=== PATIENT | male | born 1925 | race Caucasian/White ===

== ENCOUNTER 2017-01-27 15:11 | Inpatient (IN) | payer OTHER, BC ==
[~2017-01-27] VITALS: Ht 172.7 cm; Wt 81.6 kg
--- NOTE | ~2017-01-27 | HC ---
[facility] [place] [address] CONSULTATION Name: LYNNE ROSARIO Room #: 302-P [facility] ..#: [id number] Admission: 01/27/17 Attend Phys: Cierra Santacruz Discharge: 01/29/17 Date of : [birth year] Report #: [id number] THIS REPORT FOR: //name// CC: Benjamín Matos DATE OF SERVICE: 01/28/2017 ATTENDING PHYSICIAN: Cierra Santacruz MD REASON FOR CONSULTATION: Abdominal pain. HISTORY OF PRESENT ILLNESS: This is an 89-year-old male patient who is presently confused. He was seen in [facility] with acute onset epigastric abdominal pain after eating breakfast. The patient thought that he was having a heart attack. CT of the chest with PE protocol as well as the abdomen and pelvis was obtained showing no evidence for pulmonary embolism or aortic dissection, however, cholelithiasis was seen. There were no acute findings. This was followed by an abdominal ultrasound, which showed cholelithiasis with gallbladder wall thickening and a positive sonographic Duke's sign with concern for cholecystitis. The patient had a negative troponin and normal EKG. I have been asked to see the patient for further evaluation and treatment. PAST MEDICAL HISTORY: Significant for hypertension, hyperlipidemia, gastroesophageal reflux disease, history of left upper extremity melanoma, and lymphedema. PAST SURGICAL HISTORY: Melanoma excision. MEDICATIONS: At home include Zetia and atorvastatin. ALLERGIES: No known drug allergies. FAMILY HISTORY: Reviewed and noncontributory to this hospitalization. SOCIAL HISTORY: The patient denies use of tobacco, alcohol or illicit drugs. He quit smoking more than 40 years ago. He is . REVIEW OF SYSTEMS: As per history of present illness. In addition, GENERAL: The patient denies fever or chills. Denies unintentional weight loss. HEENT: Denies changes in taste, vision, hearing, or smell. RESPIRATORY: Denies shortness of breath, COPD or asthma. CARDIOVASCULAR: Denies chest pain or palpitations currently. GASTROINTESTINAL: As per history of present illness. Denies bright red blood [facility] [address] [place] [address] CONSULTATION Name: LYNNE ROSARIO Room #: 302-P [facility] IN M.R.#: [id number] Admission: 01/27/17 Attend Phys: Cierra Santacruz Discharge: 01/29/17 Date of : [birth year] Report #: [id number] per rectum. GENITOURINARY: Denies dysuria, urgency, increased urinary frequency or hematuria. MUSCULOSKELETAL: Denies myalgia, arthralgia, arthritis. Has intermittent left upper extremity edema/lymphedema. NEUROLOGIC: Denies headaches, numbness or tingling. PSYCHIATRIC: Denies depression, anxiety or suicidal ideations but admittedly has a "bad memory." SKIN AND INTEGUMENTARY: Denies new skin lesions, rashes, or moles. ENDOCRINE: Denies polydipsia, polyuria, heat or cold intolerance. All other review of systems is negative. PHYSICAL EXAMINATION: VITAL SIGNS: Temperature 97.7, blood pressure 98/59, pulse 60, respirations 18, height 5 feet 8 inches, weight 180 pounds. GENERAL: This is an 89-year-old male patient in no acute distress. HEENT: Atraumatic, normocephalic with moist mucosal membranes. Oropharynx is clear. He has no scleral icterus. NECK: Supple, no appreciable lymphadenopathy. Trachea is midline. CHEST: Clear bilaterally. No crackles or wheezes. CARDIOVASCULAR: Regular rate and rhythm, S1, S2. ABDOMEN: Soft, but tender to palpation, greatest in the right upper quadrant where he is subjectively tender as well as objectively. He has no rebound or guarding. Negative Duke's sign. No appreciable hernias, no palpable masses. GENITOURINARY: Normal external male genitalia. EXTREMITIES: No clubbing, cyanosis or edema. NEUROLOGIC: Cranial nerves 2-12 grossly intact. PSYCHIATRIC: Normal mood and affect. SKIN AND INTEGUMENTARY: No acute inflammatory changes, rashes or lesions are present. LABORATORY DATA: CBC shows a white blood cell count 6.3, hemoglobin 12.3, hematocrit 36.7 and platelets 149. His electrolytes showed sodium 142, potassium 4.1, chloride 101, CO2 of 27, BUN 16, creatinine 1.0 and glucose 121. Radiographic findings are as noted above. IMPRESSION AND PLAN: This is an 89-year-old male patient with the above listed comorbidities who is found to have gallstones, gallbladder wall thickening, and tenderness in the right upper quadrant. There is concern for acute cholecystitis. The pathophysiology and natural history of cholecystitis were discussed in detail with the patient as well as treatment alternatives, surgical options, risks, benefits and expectations. The patient would benefit from laparoscopic cholecystectomy with cholangiogram. He expressed understanding the [facility] [address] [address] CONSULTATION Name: LYNNE ROSARIO Room #: 302-P [facility] IN M.R.#: [id number] Admission: 01/27/17 Attend Phys: Cierra Santacruz Discharge: 01/29/17 Date of : 05/26/27 Report #: [id number] risks and benefits and wishes to proceed. He will be scheduled to undergo the operation at the next earliest availability. <ELECTRONICALLY SIGNED> By: Kristian Matos MD, FACS 02/01/17 1519 [id number] Kristian Matos MD, FACS /nt
--- NOTE | ~2017-01-27 | O ---
[facility] [place] [address] OPERATIVE REPORT Name: LYNNE ROSARIO Room #: 302-P [facility] IN M.R.#: [id number] Admission: 01/27/17 Attend Phys: Cierra Santacruz Discharge: 01/29/17 Date of : 05/26/[birth year] Report #: [id number] THIS REPORT FOR: //name// CC: Benjamín Matos PREOPERATIVE DIAGNOSIS: Acute cholecystitis. POSTOPERATIVE DIAGNOSES: 1. Acute cholecystitis. 2. Incarcerated umbilical hernia. PROCEDURE: 1. Laparoscopic cholecystectomy with intraoperative cholangiogram. 2. Laparoscopic repair of incarcerated umbilical hernia. SURGEON: Kristian Matos MD FIELD GAUGER: CAROLYN Rosenbaum ANESTHESIA: General endotracheal anesthesia and local anesthetic. ESTIMATED BLOOD LOSS: 5 mL. SPECIMEN: Gallbladder. COMPLICATIONS: None appreciated. INDICATIONS FOR PROCEDURE: This is an 89-year-old male patient who was seen in the [facility] emergency room with acute onset of epigastric abdominal pain after eating. The patient felt that he was having a heart attack. CT of the chest with PE protocol showed no evidence for pulmonary embolism or aortic dissection, however, cholelithiasis was seen. The patient underwent an abdominal ultrasound showing cholelithiasis with gallbladder wall thickening and a positive sonographic Duke's sign with concern for acute cholecystitis. The patient's cardiac workup was negative. The patient presents now for laparoscopic cholecystectomy with intraoperative cholangiogram. OPERATIVE FINDINGS: Upon entrance into the abdominal cavity, the gallbladder appeared to be acutely inflamed. The liver, stomach, small-bowel and colon in the surrounding area appeared otherwise normal. The critical view consisting of cystic artery, cystic duct, and lower edge of the gallbladder forming a window through which the liver was seen prior to clipping the cystic duct for cholangiogram. The cholangiogram showed no evidence for choledocholithiasis. Contrast flowed into the duodenal sweep. Three clips remained on the cystic [facility] [address] [place] [address] OPERATIVE REPORT Name: LYNNE ROSARIO Carmita Room #: 302-P [facility] IN [facility].#: [id number] Admission: 01/27/17 Attend Phys: Cierra Santacruz Discharge: 01/29/17 Date of : 05/26/27 Report #: [id number] duct stump after its division. After removal of the gallbladder from the patient's abdominal cavity, gallstones were found within the gallbladder. The liver bed was hemostatic and the 3 Hemoclips on the cystic duct were secured. An incarcerated umbilical hernia was identified during extraction of the gallbladder from the patient's body. This required a separate hubebm-pp-[id number] 0 PDS suture for repair. No other significant intraabdominal pathology was identified. At the conclusion of the operation, the sponge, needle, and instrument counts were correct. There was no evidence for iatrogenic injury. DESCRIPTION OF PROCEDURE IN DETAIL: After the benefits and risks of the procedure were explained to the patient and his durable power of erisa attorney, which include, but are not limited to risks of bleeding, infection, postoperative pain, and postoperative expectations, informed consent was obtained. The patient was identified in the preoperative holding area. He was given IV antibiotics as documented in the chart in line with the SCIP protocol. The patient was then taken to the operating room and he was placed in the supine position. SCDs were placed on the patient's bilateral lower extremities and pneumatic compression was initiated. The patient was then given IV sedation and he was intubated without incident. A time-out was performed to identify the correct patient and procedure after prepping and draping the patient in the standard sterile fashion. Local anesthetic was infiltrated into the skin and subcutaneous tissue periumbilically where a curvilinear incision was made with a #15 bladed scalpel. Dissection was carried down to the fascia. An 11-mm Visiport was placed intraperitoneally with a 0-degree angled laparoscope. Pneumoperitoneum was achieved with insufflation of carbon dioxide to 15 mmHg. A 30-degree angled laparoscope was inserted. The patient was placed in the reverse Trendelenburg position, rotated to his left. A subxiphoid 5-mm and right subcostal 5-mm ports times 2 were placed under direct visualization after local anesthetic was infiltrated into the skin and subcutaneous tissue and appropriately sized incisions were made. Operative findings are as noted above. The dome of the gallbladder was retracted in a cephalad direction. The omental adhesions to the gallbladder were carefully taken down with the ultrasonic dissector. The gallbladder peritoneum was then scored medially and laterally and dissection was carried out around the cystic artery and cystic duct to identify both structures as the only two structures entering the gallbladder. The critical view of safety was seen as described above. A Hemoclip was placed on the cystic duct at its junction with the neck of the gallbladder. A ductotomy was then created sharply. A cholangiocatheter was inserted and cholangiogram performed with findings as noted above. The cholangiocatheter was then removed and the cystic duct was triply clipped distal to the ductotomy. The duct was then divided with the ultrasonic at the ductotomy site with a good seal on the cystic duct. The cystic artery was divided with the ultrasonic dissector as well with good hemostasis. The gallbladder was then dissected out [facility] [address] [place] [address] OPERATIVE REPORT Name: LYNNE ROSARIO Room #: 302-P [facility]#: [id number] Admission: 01/27/17 Attend Phys: Cierra Holman Noam Discharge: 01/29/17 Date of : 05/26/27 Report #: [id number] of the liver bed without entrance in to the gallbladder or liver bed. The gallbladder was placed in an Endopouch and removed through the periumbilical port site. While doing so, an incarcerated umbilical hernia was seen. The incarcerated tissue was dissected out of the defect. After fully isolating the defect, a jyifxy-bd-kvjec 0 PDS suture was placed to close the defect under direct visualization with the Maximus-Anjelica laparoscopic fascial closure device. The suture was tied under direct visualization. The port site fascial opening was approximated with an 0 PDS suture using the Maximus-Anjelica fascial closure device as well. The suture was tagged and the port was replaced. The abdominal cavity was then reentered. The liver bed was made hemostatic with electrocautery. The Hemoclips were secured. No other significant intraabdominal pathology was identified. At the conclusion of the operation, the sponge, needle, and instrument counts were correct. There was no evidence for iatrogenic injury. The ports were removed and the abdominal cavity was desufflated. The fascial suture had been tied under direct visualization to ensure no incorporation of intra-abdominal content with the closure. The incisions were closed with interrupted subcuticular 4-0 Monocryl sutures and Dermabond. The patient tolerated the procedure well. He was awakened, extubated, and taken to recovery room in stable condition with no apparent intraoperative complications. By: [id number] Kristian Matos MD, FACS /nt
--- NOTE | ~2017-01-27 | S ---
[facility] [address] [place] [address] SURGICAL PATH RPT PROCEDURE Name: LYNNE ROSARIO Room #: 302-P [facility] IN M.R.#: [id number] Admission: 01/27/17 Date of : 05/26/[birth year] Discharge: 01/29/17 Report #: [id number] Path Case #: [id number] PATHOLOGY REPORT DRAFT COLLECTION DATE: 01/28/2017 RECEIVED DATE: 01/29/2017 SPECIMEN(S) RECEIVED: Colleen
--- NOTE | ~2017-01-27 | EKG ---
[address] [address] ELECTROCARDIOGRAM REPORT Name: LYNNE ROSARIO Room #: 302-P [facility] IN M.R.#: [id number] Admission: 01/27/17 Attend Phys: Cierra Santacruz Discharge: 01/29/17 Date of : 05/26/[birth year] Report #: [id number] THIS REPORT FOR: //name// [facility] ED Test Date: 2017-01-27 Test Time: 15:13:28 Pat Name: LYNNE ROSARIO Department: Room: [facility] Gender: M R And D Lab Technician: Yosvany AKERS : 1925 Requested By: Gricel Garcia Order Number: [id number] MD: Vladimir Engel Measurements Intervals [place] Rate: 62 P: 25 NH: 187 QRS: -10 QRSD: 92 T: 48 QT: 410 QTc: 417 Interpretive Statements Sinus rhythm Supraventricular bigeminy Borderline low voltage, extremity leads Compared to ECG 12/31/2011 13:15:18 Atrial premature complex(es) now present Myocardial infarct finding no longer present Electronically Signed On 02-01-2017 8:04:50 CDT by Vladimir Engel [email or web address] <ELECTRONICALLY SIGNED> By: Vladimir Engel MD 02/01/17 0804 12 151 Vladimir Engel MD /EPI
[2017-01-27 15:11] VITALS: BP 158/86
[~2017-01-27 15:11] MED LIST: CLARITIN10 MG; COSOPT EYE DROPS5 ML; FENTANYL PA12 MCG/HR TP; FENTANYL PA25 MCG/HR TP; FLONASE16 GM INH; HYDROCODON-ACE1 EAC7 PO; MELOXICAM7.5 MG PO; NABUMETONE 500500 M1 PO; NAPROSYN500 MG PO; PRILOSEC 20 MG20 MG PO; TOPROL XL25 MG; VYTORIN 10-201 EACH; VYTORIN 10-801 EACH PO; ZPAK PO
[2017-01-27] MEDS ORDERED: ATORVASTATIN CA80 MG PO (15:32)
[2017-01-27] MEDS ORDERED: ZETIA10 MG PO (15:32)
[2017-01-27 16:14] LABS: ANION GAP 8 mmol/L (7-16); BUN 22 mg/dL (7-18); CALCIUM 8.8 mg/dL (8.5-10.1); CHLORIDE 107 mmol/L (98-107); CO2 28 mmol/L (21-32); CREATININE 1.2 mg/dL (0.7-1.3); GLUCOSE 118 mg/dL (74-106); POTASSIUM 3.9 mmol/L (3.5-5.1); SODIUM 143 mmol/L (136-145)
[2017-01-27 16:24] LABS: ALBUMIN 3.8 g/dL (3.4-5.0); ALKALINE PHOSPHATASE 65 U/L (46-116); NT-PRO BRAIN NAT PEPTIDE 236 pg/mL (<300); SGOT 21 U/L (15-37); SGPT 19 U/L (30-65); TOTAL BILIRUBIN 1.2 mg/dL (<0.1-1.0); TOTAL PROTEIN 7.3 g/dL (6.4-8.2); TROPONIN-I < 0.04 ng/mL (<0.04-0.07)
[2017-01-27 16:27] LABS: APTT 25.7 Seconds (24.5-32.8); PROTIME 10.5 Seconds (9.3-11.4)
[2017-01-27 17:09] LABS: URINE BILIRUBIN NEGATIVE (Negative); URINE BLOOD NEGATIVE (Negative); URINE COLOR YELLOW; URINE GLUCOSE-RANDOM* NEGATIVE (Negative); URINE KETONES NEGATIVE (Negative); URINE LEUKOCYTES-REFLEX NEGATIVE (Negative); URINE PROTEIN (DIPSTICK) NEGATIVE (Negative); URINE UROBILINOGEN 0.2 E.U./dl (0.2-1.0)
[2017-01-27 17:11] LABS: ABSOLUTE NEUTROPHILS 3.7 thou/uL (1.4-8.2); BASOPHILS 1.1 % (0.0-2.0); EOSINOPHILS 3.3 % (0.0-3.0); HEMATOCRIT 44.3 % (42.0-52.0); HEMOGLOBIN 14.7 gm/dL (14.0-18.0); LYMPHOCYTES 25.8 % (24.0-44.0); MCH 31.2 pg (26.0-34.0); MCHC 33.2 g/dL (28.0-37.0); MONOCYTES 11.2 % (1.0-8.0); PLATELET COUNT 182 thou/uL (150-400); POLYS 58.6 % (36.0-66.0); RBC 4.71 mil/uL (4.50-6.00); RDW 13.9 % (10.5-14.5); WBC 6.3 thou/uL (4.0-11.0)
[2017-01-27 17:12] LABS: MANUAL DIFF NO
[2017-01-27 19:55] VITALS: BP 132/87
[2017-01-28 04:19] VITALS: BP 100/58
[2017-01-28 05:45] LABS: HEMATOCRIT 36.7 % (42.0-52.0); MCH 31.4 pg (26.0-34.0); MCHC 33.4 g/dL (28.0-37.0); MCV 94.1 fL (80.0-100.0); RBC 3.9 mil/uL (4.50-6.00); RDW 13.9 % (10.5-14.5); WBC 6.3 thou/uL (4.0-11.0)
[2017-01-28 05:58] LABS: CALCIUM 7.9 mg/dL (8.5-10.1); POTASSIUM 4.1 mmol/L (3.5-5.1)
[2017-01-28 06:08] LABS: HEMOGLOBIN 12.3 gm/dL (14.0-18.0)
[2017-01-28 07:24] VITALS: BP 98/59
[2017-01-28 15:14] VITALS: BP 114/68
[2017-01-28 20:05] VITALS: BP 129/76
[2017-01-29 00:15] VITALS: BP 122/76
[2017-01-29 02:17] VITALS: BP 109/68
[2017-01-29 05:48] LABS: HEMATOCRIT 42.7 % (42.0-52.0); MCH 31.7 pg (26.0-34.0); MCHC 33.8 g/dL (28.0-37.0); MCV 93.9 fL (80.0-100.0); PLATELET COUNT 174 thou/uL (150-400); RBC 4.55 mil/uL (4.50-6.00); RDW 13.5 % (10.5-14.5); WBC 8.6 thou/uL (4.0-11.0)
[2017-01-29 05:54] LABS: HEMOGLOBIN 14.4 gm/dL (14.0-18.0); MANUAL DIFF YES
[2017-01-29 05:59] LABS: CALCIUM 8.6 mg/dL (8.5-10.1); CREATININE 1.2 mg/dL (0.7-1.3); POTASSIUM 4.4 mmol/L (3.5-5.1)
[2017-01-29 07:51] VITALS: BP 126/67
[2017-01-29 08:53] LABS: ABSOLUTE NEUTROPHILS 8.2 thou/uL (1.4-8.2); TOTAL CELL COUNT 100
[2017-01-29 08:54] LABS: ANISOCYTOSIS SLIGHT
[2017-01-29] MEDS ORDERED: AMLODIPINE BESY10 MG PO (09:35)
[2017-01-29] MEDS ORDERED: HYDROCODON-ACE1 EAC7 PO (09:35)
[2017-01-29 09:45] VITALS: BP 126/67
== END 2017-01-29 10:14 | disposition home or self-care (01) | DRG 418 ==
LOC: ER 15:11 → 3N 19:16 → EROBS 19:16 → 3N 19:57
PROVIDERS: Nurse Practitioner; Physician Assistant; Surgery
PROC: 0FT44ZZ Resection of Gallbladder, Percutaneous Endoscopic Approach (ICD-10-PCS; principal; 2017-01-28)
PROC: BF121ZZ Fluoroscopy of Gallbladder using Low Osmolar Contrast (ICD-10-PCS; principal; 2017-01-28)
PROC: 0WQF4ZZ Repair Abdominal Wall, Percutaneous Endoscopic Approach (ICD-10-PCS; principal; 2017-01-28)
DX: K80.00 Calculus of gallbladder with acute cholecystitis without obstruction (principal); K42.0 Umbilical hernia with obstruction, without gangrene; I10 Essential (primary) hypertension; E78.5 Hyperlipidemia, unspecified; K21.9 Gastro-esophageal reflux disease without esophagitis; Z88.0 Allergy status to penicillin
CPT/HCPCS: 10096; 50010; 50101; 50249; 50411; 50555; 50558; 50962; 51489; 51975; 52265; 52266; 53307; 54022; 54118; 55245; 55317; 56462; 56525; 56526; 62110; 70005

== ENCOUNTER 2017-02-03 10:42 | Inpatient (IN) | payer OTHER, BC ==
[~2017-02-03] VITALS: Ht 177.8 cm; Wt 78.9 kg
--- NOTE | ~2017-02-03 | S ---
[facility] [place] [address] SURGICAL PATH RPT PROCEDURE Name: LYNNE ROSARIO Room #: 304-P [facility] IN M.R.#: [id number] Admission: 02/03/17 Date of : [birth year]/26/[birth year] Discharge: 02/09/17 Report #: [id number] Path Case #: [id number] PATHOLOGY REPORT COLLECTION DATE: 02/08/2017 RECEIVED DATE: 02/08/2017 SUBMITTING PHYS: Dr. Bob Grayson OTHER PHYS: Dr. Wesley Akhtar SPECIMEN(S) RECEIVED: A.Esophagitis * * * * * * * * * * * * FINAL DIAGNOSIS: Esophagus, biopsy: - Acute esophagitis, extensive, with ulceration, acute and chronically inflamed granulation tissue, and focal atypical squamous epithelium (please see comment). - No evidence of fungal organisms on PAS fungal stain. COMMENT: The submucosal tissue underlying the ulceration contains acute and chronically inflamed granulation tissue along with scattered single keratinocytes and possible tiny nests of atypical squamous epithelial cells which are positive with cytokeratin AE1/3. These cytokeratin AE1/3 positive cells in the submucosal tissue most likely represent remnants of benign, ulcerated squamous epithelium, however, an invasive squamous cell carcinoma cannot be ruled out entirely. Recommend re-biopsy after ulceration subsides. This case has also been reviewed by Dr. Harini Calderon, who agrees with the diagnosis. (PIA:shannon; d/t: 02/11/2017) PATHOLOGIST: Corine Budrick M.D. REPORT ELECTRONICALLY SIGNED BY: Corine Burdick M.D. DATE/TIME: 02/12/2017 11:39 * * * * * * * * * * * * GROSS PATHOLOGY: Received in formalin labeled "ana Hernandez," are seven segments of wong soft tissue measuring 1.1 x 1.1 x 0.1 cm in aggregate dimensions and ranging from 0.2 to 0.4 cm in maximum dimension. The specimen is submitted entirely in cassette A1. (CAA; 02/09/2017) [address] [address] SURGICAL PATH RPT PROCEDURE Name: LYNNE ROSARIO Room #: 304-P [facility] IN .R.#: [id number] Admission: 02/03/17 Date of : [birth year]/26/[birth year] Discharge: 02/09/17 Report #: [id number] Path Case #: [id number] CLINICAL HISTORY: Pre-op diagnosis: Dysphagia Post-op diagnosis: Esophagitis, hiatal hernia INITIAL CPT CODE(S): A; 19074, 07467, 55065 Professional services performed by [facility], [address] [address]. Technical services performed by [facility], [address] [place] [address], [address], [place] [address]. [facility] [address] [address] PHONE: [phone] DIRECTOR: Curtis W. Raimundo, M.D. * * * END OF REPORT * * *
--- NOTE | ~2017-02-03 | P ---
[facility] [place] [address] PROCEDURE REPORT Name: LYNNE ROSARIO Room #: 304-P [facility] IN M.R.#: [id number] Admission: 02/03/17 Attend Phys: Wesley Stafford MD Discharge: 02/09/17 Date of : [birth year]/26/[birth year] Report #: [id number] THIS REPORT FOR: //name// CC: Benjamín Stafford INPATIENT UPPER ENDOSCOPY REPORT BRIEF HISTORY: The patient is an 89-year-old male who was admitted in the hospital, has complaints of dysphagia for solids and liquids dating back least a year. He does report some heartburn symptoms. He also reports frequent throat clearing. PREOPERATIVE DIAGNOSES: Dysphagia and symptoms consistent with reflux disease. POSTOPERATIVE DIAGNOSES: 1. Marked diffuse distal esophagitis. 2. Tortuous distal esophagus. 3. Small hiatus hernia. MEDICATIONS: Deep sedation with propofol per anesthesia. SPECIMEN: Biopsies of distal esophagus. ESTIMATED BLOOD LOSS: 3 mL. PROCEDURE: EGD with biopsy. FINDINGS: Prior to propofol sedation, procedure of upper endoscopy discussed with the patient as well as potential risks and its complications. He indicates he understands and desires to proceed. DESCRIPTION OF PROCEDURE: With the patient in left lateral decubitus position, the Softheoni video endoscope was inserted into the cervical esophagus under direct vision without difficulty. Examination of this organ through its entire length revealed normal esophageal mucosa into the distal esophagus; however, in the distal esophagus, there was a transition to diffuse luminal esophagitis with linear exudate. Findings were felt to be consistent with diffuse esophagitis. The scope was advanced, and a small hiatus hernia was seen. The mucosa in the hernia was normal. The scope was advanced into the stomach, which was examined on end views as well as retroflexed views. He had an unremarkable-appearing gastric mucosa. No ulcers or mass lesions were seen. Upon retroflexion, the hiatus hernia was seen, but no other abnormalities were identified. The pylorus, duodenal bulb and postbulbar duodenal stricture were inspected and noted to be within normal limits. At that point, the scope was slowly withdrawn, and careful circumferential views were obtained. Biopsies obtained [address] [address] PROCEDURE REPORT Name: MARLENELYNNE G Room #: 304-P [facility] IN ..#: [id number] Admission: 02/03/17 Attend Phys: Wesley Stafford MD Discharge: 02/09/17 Date of : 05/26/27 Report #: [id number] of the esophagitis. The patient tolerated the procedure well. DISPOSITION: The patient with complaints of dysphagia. He clearly has esophagitis as described above. We will place him on pantoprazole and clear liquid diet. He was originally scheduled for colonoscopy today due to evidence of colitis on CT. However, he did not complete the prep because he said he cannot swallow. Once he is able to swallow, we can proceed with colonoscopy. We will follow up on biopsies as well. In addition, if his dysphagia persists after treatment of his esophagitis, we can consider an esophageal dilation at a later date, but we do not want to dilate today in face of the significant esophagitis. <ELECTRONICALLY SIGNED> By: Bob Grayson MD 02/09/17 1742 1146 2315 Bob Grayson MD /nt
--- NOTE | ~2017-02-03 | HC ---
[facility] [place] [address] CONSULTATION Name: LYNNE ROSARIO Room #: 304-P [facility] IN M.R.#: [id number] Admission: 02/03/17 Attend Phys: Wesley Stafford MD Discharge: Date of : [birth year] Report #: [id number] THIS REPORT FOR: //name// CC: Benjamín Akhtar Wesley Stafford DATE OF SERVICE: 02/03/2017 ATTENDING PHYSICIAN: Wesley Stafford MD CONSULTING PHYSICIAN: Kristian Matos MD REASON FOR CONSULTATION: Abdominal pain. HISTORY OF PRESENT ILLNESS: This is an 89-year-old male patient known to me from a recent cholecystectomy. He was hospitalized and underwent a laparoscopic cholecystectomy on 01/28/2017, nearly 1 week ago. The patient lifted a heavy object (approximately 75 pounds) and developed worsened abdominal pain starting this past Wednesday. He then developed nausea and vomiting on Wednesday. Denies fever or chills. He was seen in the [place] [facility] today with abdominal pain, mostly around his umbilicus. He was concerned about his incisions after having just lifted heavy weight over the weekend. CT of the abdomen and pelvis showed changes of cholecystectomy. No abscess or hernia was identified. Diffuse thickening of the mid and distal transverse colon was identified as well as the entire descending colon and proximal sigmoid colon felt to be consistent with diffuse colitis. I have been asked to see the patient for further evaluation and treatment. PAST MEDICAL HISTORY: Significant for hypertension, hyperlipidemia, gastroesophageal reflux disease, history of left upper extremity melanoma and lymphedema. PAST SURGICAL HISTORY: Melanoma excision and recent laparoscopic cholecystectomy with cholangiogram as well as repair of an incarcerated umbilical hernia on 01/28/2017. MEDICATIONS: Zetia, atorvastatin, [place] and senna S. ALLERGIES: No known drug allergies. FAMILY HISTORY: Reviewed and noncontributory to this hospitalization. SOCIAL HISTORY: The patient denies use of tobacco, alcohol or illicit drugs. He quit smoking over 40 years ago and is . REVIEW OF SYSTEMS: As per history of present illness. In addition, [facility] [address] [place] [address] CONSULTATION Name: MARLENELYNNE G Room #: 304-P [facility] IN [facility].#: [id number] Admission: 02/03/17 Attend Phys: Wesley Stafford MD Discharge: Date of : [birth year] Report #: [id number] GENERAL: The patient denies fever or chills. Denies unintentional weight loss. HEENT: Denies changes in taste, vision, hearing, or smell. RESPIRATORY: Denies shortness of breath, COPD or asthma. CARDIOVASCULAR: Denies chest pain or palpitations. GASTROINTESTINAL: As per history of present illness. He denies bright red blood per rectum. Denies nausea or vomiting. Denies diarrhea. GENITOURINARY: Denies dysuria, urgency, increased urinary frequency or hematuria. MUSCULOSKELETAL: Denies myalgia, arthralgia or arthritis. He has left upper extremity edema. NEUROLOGIC: Denies headaches, numbness or tingling. PSYCHIATRIC: Denies depression, anxiety or suicidal ideations. SKIN AND INTEGUMENTARY: Denies new skin lesions, rashes, or moles. ENDOCRINE: Denies polydipsia, polyuria, heat or cold intolerance. All other review of systems is negative. PHYSICAL EXAMINATION: VITAL SIGNS: Temperature 37.1, blood pressure 130/81, pulse 96, respirations 24. GENERAL: This is a well-developed, well-nourished 89-year-old male patient in no acute distress. HEENT: Atraumatic, normocephalic. He has no scleral icterus, somewhat hard of hearing. Oropharynx is clear. NECK: Supple, no appreciable lymphadenopathy. Trachea is midline. CHEST: Clear bilaterally. No crackles or wheezes. CARDIOVASCULAR: Regular rate and rhythm. ABDOMEN: Soft and tender to palpation, greatest around the umbilicus. His incisional scars are healing with eschars covering each wound. There is also surrounding ecchymosis. He has no appreciable hernias, no palpable masses otherwise. GENITOURINARY: Normal external male genitalia. EXTREMITIES: No clubbing, cyanosis or edema. NEUROLOGIC: Cranial nerves 2-12 grossly intact. PSYCHIATRIC: Normal mood and affect. SKIN AND INTEGUMENTARY: No acute inflammatory changes, rashes or lesions are present. Wounds are as above. LABORATORY DATA: CBC shows a white blood cell count of 15.7, hemoglobin 15.4, hematocrit 45.4 and platelets 216 with 87% segmented neutrophils. Electrolytes showed a sodium 139, potassium 4.2, chloride 104, CO2 of 27, BUN 19, creatinine 1.2 and glucose 138. Total bilirubin was elevated at 2.3. The remainder of his liver function tests are within normal limits. Urinalysis showed trace protein, 1+ ketones and was otherwise negative. IMPRESSION AND PLAN: This is an 89-year-old male patient with the above listed comorbidities who is 6 days status post an uncomplicated laparoscopic [address] [address] CONSULTATION Name: LYNNE ROSARIO Room #: 304-P AD[facility] IN M.R.#: [id number] Admission: 02/03/17 Attend Phys: Wesley Stafford MD Discharge: Date of : [birth year] Report #: [id number] cholecystectomy with cholangiogram. His wounds are stable. Bilirubin is slightly elevated. This will be followed. He does have evidence for diffuse colitis and is currently receiving appropriate antibiotics with Levaquin and Flagyl. He would benefit from a GI consult and he may ultimately require endoscopy. He would not appear to have C. diff colitis as he has had no difficulty with diarrhea, although he is currently in isolation and stools are pending to be studied. He has no acute general surgery issues at this time. I will follow along with serial abdominal exams as well as labs and x-rays as necessary. Continue current care. I sincerely appreciate the opportunity to participate in the care of this patient and will leave further recommendations and orders in the electronic medical record as appropriate. <ELECTRONICALLY SIGNED> By: Kristian Matos MD, FACS 02/04/17 1719 [id number] Kristian Matos MD, FACS /nt
[~2017-02-03 10:42] MED LIST changes: +AMLODIPINE BESY10 MG PO; +ATORVASTATIN CA80 MG PO; +ZETIA10 MG PO
[2017-02-03 10:46] VITALS: BP 161/93
[2017-02-03 11:13] LABS: HEMATOCRIT 45.4 % (42.0-52.0); HEMOGLOBIN 15.4 gm/dL (14.0-18.0); MCH 31.4 pg (26.0-34.0); MCHC 33.9 g/dL (28.0-37.0); MCV 92.8 fL (80.0-100.0); PLATELET COUNT 216 thou/uL (150-400); RBC 4.89 mil/uL (4.50-6.00); RDW 13.8 % (10.5-14.5); WBC 15.7 thou/uL (4.0-11.0)
[2017-02-03 11:14] LABS: MANUAL DIFF YES
[2017-02-03 11:23] LABS: CREATININE 1.2 mg/dL (0.7-1.3); POTASSIUM 4.2 mmol/L (3.5-5.1)
[2017-02-03 11:28] LABS: ALBUMIN 3.6 g/dL (3.4-5.0); DIRECT BILIRUBIN 0.3 mg/dL (<0.1-0.3); TOTAL BILIRUBIN 2.3 mg/dL (<0.1-1.0); TOTAL PROTEIN 7.3 g/dL (6.4-8.2)
[2017-02-03 12:12] LABS: ABSOLUTE NEUTROPHILS 13.8 thou/uL (1.4-8.2); TOTAL CELL COUNT 100
[2017-02-03 12:13] LABS: PLATELET ESTIMATE NORMAL
[2017-02-03 12:48] LABS: URINE BILIRUBIN NEGATIVE (Negative); URINE BLOOD NEGATIVE (Negative); URINE COLOR YELLOW; URINE GLUCOSE-RANDOM* NEGATIVE (Negative); URINE KETONES 1+ (Negative); URINE NITRITE NEGATIVE (Negative); URINE PROTEIN (DIPSTICK) TRACE (Negative)
[2017-02-03] MEDS ORDERED: ASPIR 8181 MG PO (13:25)
[2017-02-03 13:50] VITALS: BP 149/85
[2017-02-03 16:12] VITALS: BP 130/81
[2017-02-03 20:44] VITALS: BP 115/52
[2017-02-04 04:10] VITALS: BP 132/77
[2017-02-04 05:11] LABS: HEMATOCRIT 38.6 % (42.0-52.0); RBC 4.11 mil/uL (4.50-6.00); RDW 13.7 % (10.5-14.5)
[2017-02-04 05:12] LABS: HEMOGLOBIN 13.1 gm/dL (14.0-18.0)
[2017-02-04 05:42] LABS: ALBUMIN 2.7 g/dL (3.4-5.0); CALCIUM 7.9 mg/dL (8.5-10.1); POTASSIUM 3.7 mmol/L (3.5-5.1); TOTAL BILIRUBIN 1.6 mg/dL (<0.1-1.0); TOTAL PROTEIN 5.4 g/dL (6.4-8.2)
[2017-02-04 08:06] VITALS: BP 130/75
[2017-02-04 16:25] VITALS: BP 110/68
[2017-02-04 19:45] VITALS: BP 139/78
[2017-02-05 03:10] VITALS: BP 142/81
[2017-02-05 09:25] VITALS: BP 136/73
[2017-02-05 11:45] VITALS: BP 122/76
[2017-02-05 16:15] VITALS: BP 142/59
[2017-02-05 20:00] VITALS: BP 130/61
[2017-02-06 04:10] VITALS: BP 127/61
[2017-02-06 07:58] VITALS: BP 136/79
[2017-02-06 11:32] LABS: HEMATOCRIT 44.1 % (42.0-52.0); HEMOGLOBIN 14.7 gm/dL (14.0-18.0); MCH 31.5 pg (26.0-34.0); MCHC 33.3 g/dL (28.0-37.0); MCV 94.7 fL (80.0-100.0); RBC 4.66 mil/uL (4.50-6.00); RDW 13.6 % (10.5-14.5); WBC 8.5 thou/uL (4.0-11.0)
[2017-02-06 11:42] LABS: CALCIUM 8.3 mg/dL (8.5-10.1); POTASSIUM 3.8 mmol/L (3.5-5.1)
[2017-02-06 16:22] VITALS: BP 118/67
[2017-02-06 20:00] VITALS: BP 122/76
[2017-02-07 04:07] VITALS: BP 121/70
[2017-02-07 08:20] VITALS: BP 124/77
[2017-02-07 11:10] LABS: HEMATOCRIT 40.7 % (42.0-52.0); HEMOGLOBIN 13.9 gm/dL (14.0-18.0); RBC 4.34 mil/uL (4.50-6.00); RDW 13.4 % (10.5-14.5); WBC 6.2 thou/uL (4.0-11.0)
[2017-02-07 11:19] LABS: CALCIUM 8.1 mg/dL (8.5-10.1); POTASSIUM 3.4 mmol/L (3.5-5.1)
[2017-02-07 14:41] LABS: URINE BILIRUBIN NEGATIVE (Negative); URINE BLOOD NEGATIVE (Negative); URINE COLOR YELLOW; URINE GLUCOSE-RANDOM* NEGATIVE (Negative); URINE KETONES 1+ (Negative); URINE LEUKOCYTES-REFLEX NEGATIVE (Negative); URINE PROTEIN (DIPSTICK) NEGATIVE (Negative); URINE SPECIFIC GRAVITY 1.025 (1.003-1.035); URINE UROBILINOGEN 0.2 E.U./dl (0.2-1.0)
[2017-02-07 16:10] VITALS: BP 124/66
[2017-02-07 20:00] VITALS: BP 125/56
[2017-02-08 04:00] VITALS: BP 134/80
[2017-02-08 07:30] VITALS: BP 117/68
[2017-02-08 16:00] VITALS: BP 124/65
[2017-02-08 19:40] VITALS: BP 129/68
[2017-02-09 03:20] VITALS: BP 122/65
[2017-02-09 07:40] VITALS: BP 133/73
[2017-02-09] MEDS ORDERED: PROTONIX 20 MG20 M1 PO (09:28)
[2017-02-09] MEDS ORDERED: CARAFATE 1 GM TA1 G1 PO (09:35)
[2017-02-09 14:35] VITALS: BP 133/73
[2017-02-09 14:39] VITALS: BP 133/73
== END 2017-02-09 15:08 | disposition home health service (06) | DRG 871 ==
LOC: ER 10:42 → 3N 13:18 → EROBS 13:18 → 3N 13:51
PROVIDERS: Internal Medicine; Nurse Practitioner
PROC: 0DB58ZX Excision of Esophagus, Via Natural or Artificial Opening Endoscopic, Diagnostic (ICD-10-PCS; principal; 2017-02-08)
DX: A41.9 Sepsis, unspecified organism (principal); E43 Unspecified severe protein-calorie malnutrition; K52.9 Noninfective gastroenteritis and colitis, unspecified; I10 Essential (primary) hypertension; E78.5 Hyperlipidemia, unspecified; K21.0 Gastro-esophageal reflux disease with esophagitis; K44.9 Diaphragmatic hernia without obstruction or gangrene; E78.00 Pure hypercholesterolemia, unspecified; R13.10 Dysphagia, unspecified; Z85.820 Personal history of malignant melanoma of skin; Z79.899 Other long term (current) drug therapy; Z88.0 Allergy status to penicillin; Z90.49 Acquired absence of other specified parts of digestive tract; Z87.891 Personal history of nicotine dependence
CPT/HCPCS: 10096; 10795; 62110; 62900; 70005